=== PATIENT | male | born 1960 | race Caucasian/White ===

== ENCOUNTER 2016-11-11 17:42 | Emergency (ER) | payer OTHER ==
[~2016-11-11] VITALS: Ht 177.8 cm; Wt 73.0 kg
[2016-11-11 17:47] VITALS: BP 174/83
[2016-11-11] MEDS ORDERED: DIPH,PERTUSS(ACELL),TET VAC/PF 0.5 ML IM-VACC ONE ×2 (18:30→18:53)
[2016-11-11] MEDS ORDERED: LIDOCAINE 1%-EPI 1:100K, 20ML SQ ONE (18:30)
[2016-11-11] MEDS ORDERED: LIDOCAINE 1%, 20ML ONE (19:07)
[2016-11-11] MEDS ORDERED: BACITRACIN ZINC OINT 500U/GM, 0.9 GM ONE (19:52)
== END 2016-11-11 20:37 | disposition home or self-care (01) ==
LOC: ED 19:01
DX: S61.441A Puncture wound with foreign body of right hand, initial encounter (principal); I10 Essential (primary) hypertension; W22.8XXA Striking against or struck by other objects, initial encounter; Y93.89 Activity, other specified; Y92.89 Other specified places as the place of occurrence of the external cause; Y99.8 Other external cause status
CPT/HCPCS: 12041; 90471; 90715